=== PATIENT | male | born 1960 | race Caucasian/White ===

== ENCOUNTER → 2016-09-15 | Day surgery (SDC) | payer MEDICARE, OTHER ==
[~2016-09-15] VITALS: Ht 180.3 cm; Wt 125.6 kg
[~2016-09-15] MED LIST: ASPIR 8181 MG PO; ELIQUIS5 MG PO; FENOFIBRATE145 MG PO; FOLIC ACID PO; LASIX40 MG PO; LEFLUNOMIDE20 MG PO; LISINOPRIL2.5 MG PO; MELOXICAM7.5 MG PO; METOPROLOL TART25 MG PO; NEXIUM40 MG PO; POTASSIUM CHLO20 MEQ PO; PRAVASTATIN SOD80 MG PO; REGLAN5 MG PO; SULFASALAZINE500 MG PO; VIT B COMPLEX PO; VIT B12 PO
== END | disposition home or self-care (01) ==
LOC: OR 06:36
PROVIDERS: Internal Medicine Gastroenterology
PROC: 0DB68ZX Excision of Stomach, Via Natural or Artificial Opening Endoscopic, Diagnostic (ICD-10-PCS; principal; 2016-09-15 08:00)
PROC: 0DJD8ZZ Inspection of Lower Intestinal Tract, Via Natural or Artificial Opening Endoscopic (ICD-10-PCS; 2016-09-15 08:00)
DX: K29.50 Unspecified chronic gastritis without bleeding (principal); K44.9 Diaphragmatic hernia without obstruction or gangrene; K21.0 Gastro-esophageal reflux disease with esophagitis; K64.1 Second degree hemorrhoids; R11.10 Vomiting, unspecified; J45.909 Unspecified asthma, uncomplicated; I50.9 Heart failure, unspecified; J44.9 Chronic obstructive pulmonary disease, unspecified; D68.9 Coagulation defect, unspecified; E66.9 Obesity, unspecified; G47.30 Sleep apnea, unspecified; I25.119 Atherosclerotic heart disease of native coronary artery with unspecified angina pectoris; I25.2 Old myocardial infarction; I11.0 Hypertensive heart disease with heart failure; M19.90 Unspecified osteoarthritis, unspecified site; Z86.718 Personal history of other venous thrombosis and embolism; Z82.49 Family history of ischemic heart disease and other diseases of the circulatory system; Z83.3 Family history of diabetes mellitus; Z79.899 Other long term (current) drug therapy; Z87.01 Personal history of pneumonia (recurrent)
CPT/HCPCS: J7030

== ENCOUNTER 2016-10-20 19:46 | Emergency (ER) | payer MEDICARE, OTHER ==
[2016-10-20 22:32] LABS: HEMOGLOBIN 13.7 gm/dl (14.0-17.5); RED BLOOD COUNT 4.49 M/UL (4.20-5.50); WHITE BLOOD COUNT 6.3 K/UL (4.5-11.0)
[2016-10-20 22:49] LABS: BUN/CREATININE RATIO 17 (0-10)
== END 2016-10-21 01:38 | disposition home or self-care (01) ==
LOC: ER1 19:46
PROVIDERS: Emergency Medicine
DX: L03.116 Cellulitis of left lower limb (principal); I10 Essential (primary) hypertension; Z95.1 Presence of aortocoronary bypass graft
CPT/HCPCS: 36415; 80053; 85025; 85379; 86140; 87040; 96365; 96375; 96376; 99283; J2270; J2405; J3370

== ENCOUNTER → 2016-11-11 | Outpatient (CLI) | payer MEDICARE, OTHER | LOC: US 11:24 | DX: I82.402 Acute embolism and thrombosis of unspecified deep veins of left lower extremity (principal); I82.409 Acute embolism and thrombosis of unspecified deep veins of unspecified lower extremity; M79.605 Pain in left leg; M79.662 Pain in left lower leg; M79.89 Other specified soft tissue disorders; I82.412 Acute embolism and thrombosis of left femoral vein; I82.432 Acute embolism and thrombosis of left popliteal vein | CPT/HCPCS: 93971 ==

== ENCOUNTER → 2016-12-17 | Outpatient (CLI) | payer MEDICARE, OTHER ==
[2016-12-17 13:52] LABS: HEMOGLOBIN 14.4 gm/dl (14.0-17.5); RED BLOOD COUNT 4.75 M/UL (4.20-5.50); WHITE BLOOD COUNT 6.3 K/UL (4.5-11.0)
== END ==
LOC: LAB 12:48
PROVIDERS: Podiatrist Foot & Ankle Surgery
DX: M48.10 Ankylosing hyperostosis [Forestier], site unspecified (principal)
CPT/HCPCS: 36415; 85027; 86039; 86140; 86160; 86200; 86225; 86431; 86812

== ENCOUNTER → 2017-01-02 | Outpatient (CLI) | payer MEDICARE, OTHER | LOC: KOH-I 12-31 09:15 → EMI 08:00 → KOH-I 02-05 08:00 | DX: M54.16 Radiculopathy, lumbar region (principal); M66.371 Spontaneous rupture of flexor tendons, right ankle and foot; M79.89 Other specified soft tissue disorders; M76.61 Achilles tendinitis, right leg; M71.9 Bursopathy, unspecified | CPT/HCPCS: 72148; 73718; 73721 ==

== ENCOUNTER → 2021-09-23 | Outpatient (CLI) | payer OTHER, MEDICARE ==
[~2021-09-23] MED LIST changes: +CLARITIN10 MG PO; +K-DUR TAB 20 M20 MEQ PO; +KEFLEX CAP 500500 MG PO; +LAC-HYDRIN FIV226 GM TD; +LEVOFLOXACIN500 MG PO; +ONCE DAILY1 EACH PO; +PERCOCET 5/325 T1 EA PO; +ROBITUSSIN DM UD5 ML PO; +TESSALON PERLE100 MG PO; +TIZANIDINE HCL2 M1 PO; +VITAMIN C 500500 MG PO; +ZITHROMAX250 MG PO; +ZOFRAN4 MG PO
== END ==
LOC: EXRD 13:27
DX: M54.2 Cervicalgia (principal); M47.812 Spondylosis without myelopathy or radiculopathy, cervical region
CPT/HCPCS: 72050

== ENCOUNTER → 2022-03-27 | Outpatient (CLI) | payer MEDICARE, OTHER | LOC: RT 15:09 | DX: I25.10 Atherosclerotic heart disease of native coronary artery without angina pectoris (principal); I44.0 Atrioventricular block, first degree | CPT/HCPCS: 93005 ==